=== PATIENT | female | born 1945 | race Caucasian/White ===

== ENCOUNTER 2016-10-21 21:56 | Emergency (ER) | payer BC ==
--- NOTE | ~2016-10-21 | ER ---
PATIENT'S NAME: [facility] AGE: 70 Y [address] ROOM: [place] [address] LOCATION: [facility] ADMIT DATE: 10/21/2016 ER/Outpatient Report DISCHARGE DATE: 10/22/2016 FAMILY PHYSICIAN: Physician, Unknown ATTENDING PHYSICIAN: Rahul York Time of Arrival: 2156 hours. Time of Evaluation: 2215 hours. CHIEF COMPLAINT: This is a 70-year-old female with multiple medical problems. She is in with complaint of an episode of chest pain. HISTORY OF PRESENT ILLNESS: She reports that she developed fairly abrupt onset of chest pain, sweating, and shortness of breath. The pain radiated to her upper back that lasted approximately 5 minutes and resolved. She has been pain free since then. PAST MEDICAL HISTORY: Significant for seizures, she has a history of ovarian cancer, bilateral knee replacement. CURRENT MEDICATIONS: Please see list. REVIEW OF SYSTEMS: Otherwise negative. SOCIAL HISTORY: She smokes four cigarettes a day. She drinks alcohol occasionally. She is . PHYSICAL EXAMINATION: GENERAL: Alert, cooperative female, in no acute distress. VITAL SIGNS: Stable. SKIN: Warm and dry. Color is pale. She is asymptomatic at the time of my evaluation. HEAD EARS, EYES, NOSE, AND THROAT: Normal. NECK: Supple. HEART AND LUNGS: She had rhonchi audible bilaterally. ABDOMEN: Soft and nontender. EXTREMITIES: Normal. NEUROLOGIC: Normal. She remained pain-free in the emergency department. EKG was unremarkable. PATIENT'S NAME: [facility] AGE: 70 Y [address] ROOM: [place] [address] LOCATION: [facility] ADMIT DATE: 10/21/2016 ER/Outpatient Report DISCHARGE DATE: 10/22/2016 FAMILY PHYSICIAN: Physician, Unknown ATTENDING PHYSICIAN: Rahul York Comprehensive metabolic profile and cardiac enzymes were negative. D-dimer was normal. I initially planned on admitting the patient; however, after I discussed this with the patient, she states due to her metastatic disease, frequent hospital visits, and the fact that she has been asymptomatic since arrival, she requests to go home in spite of my recommendation and I can certainly understand that line of thinking. She was discharged. ASSESSMENT: Chest pain/resolved. PLAN: Follow up with her regular doctor. Return immediately for recurrent pain. MD ANDRY MARINO/modl /[id number] d: 10/22/16 1118 t: 11/19/16 0954, OUTPATIENT REPORT
[~2016-10-21 21:56] MED LIST: ALEVE220 M1 PO; ALLEGRA ALLERG180 MG PO; ALLEGRA180 MG PO; ASPIRIN325 MG PO; ATIVAN 0.5MG0.5 MG PO; COLACE100 MG PO; COQ-10100 MG PO; CRANBERRY CONC1 EACH PO; CRANBERRY200 MG PO; DECADRON4 MG PO; DULCOLAX10 MG R; EFFEXOR XR150 MG PO; FEOSOL325 MG PO; FISH OIL1000 MG PO; KEPPRA500 MG PO; LECITHIN400 MG PO; LEVOTHROID (SY50 MCG PO; MIRALAX17 GM PO; NIASPAN500 MG PO; NORCO 5-325 MG1 TAB PO; NUCYNTA50 MG PO; OCUVITE SOFTGE1 EACH PO; OSCAL + D500 MG PO; THERA-VITE W/ B1 TAB PO; TYLENOL325 MG PO; VITAMIN E400 UNI2 PO; ZINCATE (50 MG220 MG PO
[2016-10-21 22:39] LABS: BASOPHIL % 0.2 %; EOSINOPHIL % 0.2 %; HEMOGLOBIN 10.4 g/dL (10.0-15.0); IMMATURE GRANULOCYTE % 0.4 %; LYMPHOCYTE # 2.9 K/uL (0.8-4.0); LYMPHOCYTE % 35.5 %; MCH 30.5 pg (27.0-34.0); MCHC 32.5 gm/dL (32.0-36.5); MCV 93.8 fl (83.0-98.0); MONOCYTE # 0.2 K/uL (0.0-1.0); MPV 9.4 fl (9.4-12.4); NEUTROPHIL % 61.7 %; NRBC % 0 /100WBC (0-0.00); PLATELET COUNT 255 K/uL (150-450); RBC 3.41 M/uL (3.50-5.50); RDW-CV 19.1 % (11.9-14.6); WBC 8.1 K/uL (4.0-11.0)
[2016-10-21 22:55] LABS: PROTIME 10.5 SECONDS (9.6-11.1); PTT 22 SECONDS (25-32)
[2016-10-21 22:58] LABS: ALBUMIN 3.4 gm/dL (3.5-5.0); ALK PHOS 57 IU/L (33-138); ALT 20 IU/L (12-78); ANION GAP 16.8 (10.0-19.0); AST 15 IU/L (10-40); BLOOD UREA NITROGEN 17 mg/dL (6-24); CALCIUM 8.6 mg/dL (8.5-10.5); CHLORIDE 101 mMol/L (96-110); CO2 24 mMol/L (22-32); CPK 41 IU/L (21-215); CREATININE 0.7 mg/dL (0.5-1.1); ESTIMATED GFR (MDRD EQUATION) > 60; POTASSIUM 3.8 mMol/L (3.7-5.1); SODIUM 138 mMol/L (135-145); TOTAL BILIRUBIN 0.3 mg/dL (0.0-1.5); TOTAL PROTEIN 6.6 g/dL (6.0-8.4)
== END 2016-10-22 00:12 | disposition disaster alternative care site (69) ==
LOC: GMED 21:56
PROVIDERS: Emergency Medicine
DX: R07.9 Chest pain, unspecified (principal); F17.210 Nicotine dependence, cigarettes, uncomplicated

== ENCOUNTER → 2016-10-25 | Outpatient (CLI) | payer BC, MEDICARE ==
[~2016-10-25] MED LIST changes: +CATALYN; +CATALYN PO; +EFFEXOR XR75 MG PO; +TYLENOL ARTHRI650 MG PO; +XARELTO20 MG PO
[2016-10-25 11:04] LABS: CREATININE 0.5 mg/dL (0.5-1.1); ESTIMATED GFR (MDRD EQUATION) > 60
== END | disposition disaster alternative care site (69) ==
LOC: GRAD 10:00
PROVIDERS: Neurological Surgery
DX: Z08 Encounter for follow-up examination after completed treatment for malignant neoplasm (principal); Z85.89 Personal history of malignant neoplasm of other organs and systems; Z98.890 Other specified postprocedural states; J98.4 Other disorders of lung
CPT/HCPCS: A9577

== ENCOUNTER → 2016-11-08 | Outpatient (CLI) | payer BC, MEDICARE | END | disposition disaster alternative care site (69) | LOC: GRAD 08:00 | DX: C56.9 Malignant neoplasm of unspecified ovary (principal); C79.31 Secondary malignant neoplasm of brain ==

== ENCOUNTER 2016-12-06 18:57 | Inpatient (IN) | payer BC, MEDICARE ==
[~2016-12-06] VITALS: Ht 167.6 cm; Wt 88.0 kg
--- NOTE | ~2016-12-06 | CON ---
PATIENT'S NAME: SANDRINE CASAS [facility] AGE: 71 Y [address] ROOM: [id number] [place], [place] [address] LOCATION: [facility] ADMIT DATE: 12/06/2016 Consultation DISCHARGE DATE: FAMILY PHYSICIAN: Ady Lara MD ATTENDING PHYSICIAN: Ady Lara REFERRING PHYSICIAN: MD Aleksey MELENDEZ has requested that I provide an inpatient consultation on this 71-year-old female, who presents to the [facility] Emergency Room with a chief complaint of left hip pain. Her past orthopedic history is significant for having undergone bilateral total knee replacements and bilateral total hip replacements with me. She states that her left hip has been pain-free until she fell on Saturday and landed on her left side. She has chronic weakness in her left leg stemming from brain cancer. I have not seen her subsequent to treatment for her brain cancer and the associated development of left-sided weakness. She localizes her pain to her left sacroiliac region and left greater trochanter. The patient is being admitted to Dr. Pleitez's service, but Dr. Pleitez and Aleksey Cook (who evaluated the patient upon her arrival in the emergency room) have requested my input due to my past involvement with treating her hip and knee arthritis. Active medical problems and present medications are as specified on her chart. Her , Matthew,is not presently at her bedside. PHYSICAL EXAMINATION: The patient is alert and oriented. There is no pain or crepitation with passive range of motion of the left hip. There is tenderness at the left hip greater trochanter, but there is no swelling or ecchymosis at the left greater trochanter. There are well-healed longitudinal midline scars at both knees. There is an associated L-shaped scar over the lateral plateau of the left knee. There are well-healed posterolateral scars at both hips. There was increased tone at the left hand. The left lower extremity is flaccid. RADIOGRAPHS: AP pelvis as well as AP and lateral radiographs of the left hip, femur, and left knee demonstrate well-fixed, well-aligned bilateral total hip replacements and left total knee replacement. Radiographs of the right knee are pending (the patient reports low-grade right knee pain subsequent to the fall on Saturday). Her hip replacements and left knee replacements are well fixed and well aligned. There are no radiolucencies. There is no periprosthetic fracture. There is no significant polyethylene wear or osteolysis. IMPRESSION: PATIENT'S NAME: SANDRINE CASAS [facility] AGE: 71 Y [address] ROOM: [address] [address] LOCATION: [facility] ADMIT DATE: 12/06/2016 Consultation DISCHARGE DATE: FAMILY PHYSICIAN: Ady Lara MD ATTENDING PHYSICIAN: Ady Lara Contusion, left hip. Well-fixed, well-aligned left total knee replacement. Well-fixed, well-aligned bilateral total hip replacements. No evident periprosthetic fracture. Left norberto-paresis associated with brain cancer and treatment thereof. Incomplete database (radiographs of the right knee pending). RECOMMENDATIONS: I reassured the patient that there was no evidence of a periprosthetic fracture. She should be permitted to bear weight (but not through pain). I will follow her along while she is in the hospital and subsequently as an outpatient. I have reassured her that no surgery is presently indicated on her left lower extremity. MD ANTHONY MELENDEZ/chavo /[id number] CC: Aleksey Cook PA-C d: 12/07/16 0132 t: 12/07/16 1748, CONSULTATION REPORT
--- NOTE | ~2016-12-06 | ER ---
PATIENT'S NAME: SANDRINE CASAS [facility] AGE: 71 Y [address] ROOM: [address] [place], [place] [address] LOCATION: [facility] ADMIT DATE: 12/06/2016 ER/Outpatient Report DISCHARGE DATE: FAMILY PHYSICIAN: Ady Lara MD ATTENDING PHYSICIAN: Ady Lara Time of Patient's Arrival: 1857 hours. Time of Patient's Evaluation: 1905 hours. CHIEF COMPLAINT: Ground level fall. HISTORY OF PRESENT ILLNESS: This is a 71-year-old female who presents to the ER via [place] [facility]. The patient and patient's state she suffered a ground level fall on Saturday. She states that she was transferring from her recliner to her wheelchair by herself, she ended up falling and she struck the back of her head on the coffee table and she lost consciousness for a brief second. states that she came right too, she was talking fine, had noted dizziness. He and his neighbor were able to get her up and put her in her wheelchair. The patient states that she did have landed on her left side. She states since the fall she does have a progressive increased pain in her left hip, a little bit into her lower back, but her pain radiates all the way down her left leg and she has a little bit of pain in her right knee as well. She states that she did do PT and OT in [place] today and she was a heavy 2 assist at that time. states that he was not able to help her this evening due to her pain and that is why they brought her in this evening. The patient denies any neck pain. She states that she does have some residual left-sided weakness from having her brain tumor removed in April of last year. She has had no other recent illness. No chest pain. No shortness of breath. ALLERGIES: PLEASE SEE MEDICATION LIST IN NURSE'S NOTES. MEDICATIONS: Please see medication list in nurse's notes. 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 SOCIAL HISTORY: She denies smoking, drug, or alcohol use. PATIENT'S NAME: SANDRINE CASAS [facility] AGE: 71 Y [address] ROOM: [address] [address] LOCATION: [facility] ADMIT DATE: 12/06/2016 ER/Outpatient Report DISCHARGE DATE: FAMILY PHYSICIAN: Ady Lara MD ATTENDING PHYSICIAN: Ady Lara REVIEW OF SYSTEMS: A 10-point review of systems was completed and was negative with the exception of those discussed in the HPI. PHYSICAL EXAMINATION: VITAL SIGNS: Height 5 feet 6 inches stated, weight 89 kg taken, blood pressure is 171/83, pulse 113, respirations 18, temperature 98 degrees tympanically, and saturations 98% on room air. [place] Coma Score is 15. GENERAL: Alert, calm female, in no obvious distress if she does not move. HEENT: Head: Normocephalic. She does display moist mucous membranes. Eyes: Pupils are equal and reactive to light. NECK: Supple. No lymphadenopathy. LUNGS: Clear to auscultation bilaterally. HEART: Slightly tachycardic. Normal rhythm. ABDOMEN: Soft, it is nontender. She has good bowel sounds throughout. No masses were palpated. MUSCULOSKELETAL: She does have left-sided weakness in upper and lower extremities. She has good sensation bilaterally to her lower extremities. She does have tenderness with palpation over her pelvis and left hip. She also has tenderness all the way down her left lower extremity to her knee and some mild right knee pain with palpation as well. I did not appreciate any open cuts or wounds. Her scalp has no erythema, no hematoma to it. She does have a healed scar to the right side of her scalp. NEURO: Cranial nerves 2 through 12 grossly intact. Gait was not observed. LABORATORY DATA: CBC: White count is 10.2, hemoglobin is 10.4, and platelets 317. Chemistry was unremarkable. X-rays of the pelvis and left hip were done and no obvious fracture was seen. X-ray of the left knee shows no obvious fracture. X-ray of the right knee shows no obvious fracture. We did do a CT to scan of her pelvis, which was reported as no fracture by Dr. Mitchell. IMPRESSION: 1. Left hip, left lower extremity, and right knee pain from ground level fall. 2. History of ovarian cancer. 3. Left-sided residual weakness from brain tumor removal. ASSESSMENT AND PLAN: The patient's port was accessed here in the emergency room. The patient states that she did not want any pain medication as long as we did not move her round. The patient's primary care physician is Dr. Lara, therefore I PATIENT'S NAME: SANDRINE CASAS [facility] AGE: 71 Y [address] ROOM: [place] [address] LOCATION: [facility] ADMIT DATE: 12/06/2016 ER/Outpatient Report DISCHARGE DATE: FAMILY PHYSICIAN: Ady Lara MD ATTENDING PHYSICIAN: Ady Lara called Dr. Pleitez, and he will be admitting the patient. I also notified Dr. Stearns of the patient, he also evaluated here in the emergency room as well. We will be turning the patient's care over to [facility] and Dr. Stearns at this time. The patient understands and agrees with care. LALA MENDEZ PA-C FOR MD KERI ONTIVEROS/chavo /[id number] d: 12/07/16132 t: 12/13/16 1819, OUTPATIENT REPORT
--- NOTE | ~2016-12-06 | DS ---
PATIENT'S NAME: SANDRINE CASAS [facility] AGE: 71 Y [address] ROOM: [place] [address] LOCATION: [facility] ADMIT DATE: 12/06/2016 Discharge Summary DISCHARGE DATE: 12/11/2016 FAMILY PHYSICIAN: Ady Lara MD ATTENDING PHYSICIAN: Ady Lara FINAL DIAGNOSES: 1. Left hip contusion. 2. History of metastatic ovarian cancer. 3. History of deep vein thrombosis. 4. History of seizure. PRINCIPAL PROCEDURES: None. DESCRIPTION: This 71-year-old female was admitted following a fall at home. She continuous with severe left hip pain following that fall. She is not going to be cared for at home. She had negative x-rays and CT scans in the ER, but was not able to be handled at home, so she was admitted for further definitive care. Please see dictated H and P for full details. HOSPITAL COURSE: The patient was initially admitted. She was continued on her home medications and had Dr. Stearns see her. He did not feel like there was anything from a fracture standpoint going on. She just continued to not do well from a standpoint of improving with the pain and it was felt like we needed to have further PT and OT, so we did consult Dr. Washburn who subsequently accepted transfer of this patient. The patient will be transferred to inpatient rehab. MEDICATIONS: Include: 1. Decadron 2 mg twice daily. 2. Colace 100 mg b.i.d. 3. Keppra 500 mg b.i.d. 4. Levothyroxine 50 mcg daily. 5. Fexofenadine 180 mg daily. 6. MiraLAX 17 g daily. 7. Xarelto 20 mg daily. 8. Effexor XR 225 mg total daily. PLAN: She will call or return if she has any further problems or concerns. She voiced understanding of that plan. ADY LARA MD PATIENT'S NAME: SANDRINE CASAS [facility] AGE: 71 Y [address] ROOM: [place] [address] LOCATION: [facility] ADMIT DATE: 12/06/2016 Discharge Summary DISCHARGE DATE: 12/11/2016 FAMILY PHYSICIAN: Ady Lara MD ATTENDING PHYSICIAN: Ady Lara/modl /[id number] d: 12/28/16 0203 t: 12/28/16 0710, DISCHARGE SUMMARY
--- NOTE | ~2016-12-06 | HP ---
PATIENT'S NAME: SANDRINE CASAS [facility] AGE: 71 Y [address] ROOM: [address] [place], [place] [address] LOCATION: [facility] ADMIT DATE: 12/06/2016 History & Physical DISCHARGE DATE: FAMILY PHYSICIAN: Ady Lara MD ATTENDING PHYSICIAN: John Pleitez DATE OF SERVICE: ADMIT OBSERVATION NOTE CHIEF COMPLAINT: Severe left hip, bilateral lower leg and knee pain. She has a history of a ground level fall on 12/04/2016. HISTORY OF PRESENT ILLNESS: The patient is a 71-year-old female with known history of metastatic ovarian cancer, who was initially diagnosed when she presented with seizures on 04/30/2016 and was found to have a right frontal brain mass. It was resected by Dr. Moore and was found to be adenocarcinoma, thought to be metastatic. Further evaluation showed a right pelvic mass. She had a hysterectomy, so Dr. Zimmerman was consulted and was presumed to be a right ovarian mass. She subsequently underwent an exploratory laparotomy on 06/25/2016 with bilateral salpingo-oophorectomy for pelvic tumor debulking. She also had an omental biopsy. 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 Good news is her CA-125 has been coming down. On 08/16/2016, it was 19.6; on 09/27/2016, it was down to 10.2. She did have a left lower extremity DVT on 08/06/2016. She is on Xarelto for that. The patient reports that she was doing a transfer on Saturday12/04/2016 when she had a ground level fall. She has had increasing pain in her buttocks and legs. She is now to the point where she can not be taken care of at home. She was in physical therapy today. She unfortunately did not stop and see Dr. Lara anywhere along the way. She presented to the emergency room. She had x-rays done of her hips, knees, legs, pelvis along with a CT of her pelvis, all of which is negative for fracture. She is adamant that there is no way she could go home and take care of herself. MEDICAL ALLERGIES: Codeine, honey bees, meperidine oral tablets, and shellfish. CURRENT MEDICATIONS: 1. Linsey 180 mg daily. 2. Ativan 0.5 mg tablet every 4 hours p.r.n. 3. Bisac-Evac 10 mg suppository rectally once daily as needed. 4. Dexamethasone 4 mg half a tablet oral route 2 times daily. 5. EpiPen. PATIENT'S NAME: SANDRINE CASAS [facility] AGE: 71 Y [address] ROOM: [place] [address] LOCATION: [facility] ADMIT DATE: 12/06/2016 History & Physical DISCHARGE DATE: FAMILY PHYSICIAN: Ady Lara MD ATTENDING PHYSICIAN: John Pleitez 6. Fish oil concentrate. 7. She has a left AFO. 8. She is on Keppra 500 mg 1 twice daily. 9. Multivitamin daily. 10. Niacin 500 mg 1 capsule daily. 11. Nucynta, she had tablet of 50 mg every 6 hours. I do think that this is though. 12. She is on Synthroid 50 mcg daily. 13. Venlafaxine, she is on 150 and a 75 mg tablet for a total of 225 mg daily. Those are actually capsules. 14. She is also on Xarelto 20 mg daily. 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 She also has a history of seizure disorder secondary to the metastatic brain lesion, which was resected, and she has had problems with tolerance to statins. SURGICAL HISTORY: Includes an appendectomy in 1971, arthroscopic left knee surgery, one in 1989, one in 1994, and one in 1995. She had a biopsy of the right breast in 2004. She has had cataract surgery bilaterally in 03/2014. She had a cholecystectomy in 1975. She had a right frontal craniotomy for resection of brain tumor on 05/02/[address] Moore. She had a previous D and C in 1974. She had a right hip replacement in 06/2013. She had a hysterectomy for heavy bleeding back in 1975. She has had a history of a knee surgery, left knee revision in 2004. On 05/13/2016, she had stereotactic radio surgery of the right frontal lobe cavity. She had right lower leg DVT in 1973 and left lower leg DVT in 2004. She had a port placement on 07/26/2016. On 06/25/2016, she had exploratory laparotomy with bilateral salpingo-oophorectomy with pelvic debulking and omental biopsy by Dr. Tomasz Richmond. She had left total hip arthroplasty in 2004. She had a left total knee arthroplasty in 1997 and a right total knee arthroplasty in 2010. She had tubal ligation in 1971. She had a history of right lower extremity varicose vein surgery with a ligation and stripping in 1974. SOCIAL HISTORY: She does have alcohol on occasional basis, occasional caffeine. Denies illicit drug use. She is and retired, and she is an every day smoker. FAMILY HISTORY: PATIENT'S NAME: SANDRINE CASAS [facility] AGE: 71 Y [address] ROOM: [place] [address] LOCATION: [facility] ADMIT DATE: 12/06/2016 History & Physical DISCHARGE DATE: FAMILY PHYSICIAN: Ady Lara MD ATTENDING PHYSICIAN: John Pleitez Family history is remarkable for cancer in her mom, coronary artery disease in dad, heart disease in mom, and hyperlipidemia in her mother and sister. IMMUNIZATIONS: She had her influenza on 06/22/2016, pneumococcal on 06/22/2016. She had a Tdap on 11/30/2015. REVIEW OF SYSTEMS: HEENT: Negative. LUNGS: Denies shortness of breath. CHEST: No pains, pressure, or tightness. GI: Negative. : Negative. MUSCULOSKELETAL: Just the left hip and bilateral leg pain and knee pain. PHYSICAL EXAMINATION: GENERAL: An alert female, who is resting comfortably in bed. She does not appear to be in acute distress. GENERAL: Height is 5 feet 6 inches, weight 89 kg, blood pressure 171/83, pulse is 113, respiratory rate 18, temp 98.0, saturations 98%. HEENT: Her head is normocephalic, atraumatic. She has signs of her previous craniotomy. Her ears, eyes, nose, and throat are otherwise clear. NECK: Supple. No adenopathy. LUNGS: Clear. HEART: Regular rate and rhythm. ABDOMEN: Benign. EXTREMITIES: She has a fair amount of bruising on her upper extremities. She is on Xarelto as mentioned. Interesting thing is on her lower extremity, she has no bruises, contusions, hematomas that I can find. She also has no pain with movement of her left hip, right hip, left and right knees. Her legs have full range of motion. She has no significant edema. As I mentioned, no indurated, swollen areas from the fall. LABORATORY AND DIAGNOSTIC DATA: The patient had x-rays done. She had a CT of her head without contrast, which showed no acute process. She had a left knee three views, CT scan of her pelvis along with left hip done, and all these were negative for any signs of fractures. There were no signs of any new other metastatic lesions. Her white count is 10.2, hemoglobin 10.4, hematocrit 32.3, platelet count 317. Her differential shows 53.7% neutrophils, 37.1% lymphocytes. Her PTT is 26, pro-time 9.9, INR of 0.94. She had a chemistry panel, which showed a glucose of 90, BUN 16, creatinine 0.5, sodium 139, potassium 3.7, chloride 105, CO2 of 24, corrected calcium 8.9, total protein 6.8, albumin 3.4, AST 20, ALT 23, and EGFR is greater than 60. PATIENT'S NAME: SANDRINE CASAS [facility] AGE: 71 Y [address] ROOM: [place] [address] LOCATION: [facility] ADMIT DATE: 12/06/2016 History & Physical DISCHARGE DATE: FAMILY PHYSICIAN: Ady Lara MD ATTENDING PHYSICIAN: John Pleitez ASSESSMENT: 1. Bilateral lower extremity pain, worse in the left hip and also complains of bilateral knee pain, but there are no signs of trauma that I can see. X-rays are negative. 2. 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 These are all status post resection. 3. On paclitaxel 175 mg/m2 IV per Oncology. 4. History of left lower extremity deep venous thrombosis, diagnosed 08/06/2016, for which she is on Xarelto. 5. History of depression. 6. History of tobacco dependence. 7. Hyperlipidemia. 8. Hypothyroidism. 9. Osteoarthritis. 10. History of seizure disorder secondary to her metastatic ovarian cancer. 11. History of statin intolerance. PLAN: We will admit the patient to observation. We will have Dr. Stearns, her orthopedist, see her tomorrow to have further evaluate things. We will keep her comfortable in the mean time, and Dr. Lara, her regular doctor, will take over in the morning. MD SHAUNA THRASHER/chavo /[id number] D: [id number] T: [id number] HISTORY & PHYSICAL
--- NOTE | ~2016-12-06 | CON ---
PATIENT'S NAME: SANDRINE CASAS [facility] AGE: 71 Y [address] ROOM: [place] [address] LOCATION: [facility] ADMIT DATE: 12/06/2016 Consultation DISCHARGE DATE: FAMILY PHYSICIAN: Ady Lara MD ATTENDING PHYSICIAN: Ady Lara REFERRING PHYSICIAN: ILIR REID MD Consult for Dr. Lara. This 71-year-old lady who is well known to me, has been on rehab unit for a while, she is referred for rehab/GIRP unit admission, was admitted on 12/06/2016 with sudden onset of severe pain after she fell accidentally to the floor, landing on the left hip and it has been seen by the ortho part which has ruled out the possibility of fracture so far. So far, she is still in pain and is unable to ambulate. She has extensive past history of ovarian cancer initially diagnosed, presenting as seizure disorder with metastasis to the brain on 04/30, right frontal brain mass with resection and showed adenocarcinoma, right pelvic mass later on was evaluated at the right ovary and she underwent exploratory laparotomy on 06/25/2016, and debulking with some in oophorectomy. She is markedly weak on the left side, left upper extremity more involved than the left lower extremity. She is at the present time being markedly much in pain if she stands. Her CA-125 has been going down. She is on Xarelto and did have a DVT in bilateral lower extremities on 07/17/2016. At the present time, she is unable to stand and if stands with maximal assistance of two, cannot make, but one step and she could not go further. ALLERGIES: SHE IS ALLERGIC TO CODEINE, MEPERIDINE, AND HONEY BEE. ALERT AND ORIENTED, STILL MARKEDLY WEAK ON THE LEFT SIDE AND IS HOWEVER ABLE TO COMPREHEND AND EXPRESS WITHOUT DIFFICULTY. VITALS ARE STABLE. MEDICATION: She is on the following medications. 1. Claritin. 2. MiraLAX. 3. Decadron. 4. Colace. PATIENT'S NAME: SANDRINE CASAS [facility] AGE: 71 Y [address] ROOM: [place] [address] LOCATION: [facility] ADMIT DATE: 12/06/2016 Consultation DISCHARGE DATE: FAMILY PHYSICIAN: Ady Lara MD ATTENDING PHYSICIAN: Ady Lara 5. Tylenol. 6. Effexor XR. 7. Multivitamin. 8. NaCl 0.9%. 9. Naproxen. 10. Dulcolax suppository. 11. Xarelto. 12. Levothyroxine. 13. Nucynta. 14. Keppra. Now, she is with a Prado catheter also. I would suggest that she be admitted for intensive rehabilitation for about 10- 14 days aiming to discharge on modified independence and meanwhile we can control her pain to a better extent. All the above was explained to her. She verbalized understanding and agreement. Thank you for this referral. MD FREDO MARES/modl /[id number] d: 12/09/16 1601 t: 12/10/16 0747, CONSULTATION REPORT
[~2016-12-06 18:57] MED LIST changes: -CATALYN; -CATALYN PO; -EFFEXOR XR75 MG PO; -TYLENOL ARTHRI650 MG PO; -XARELTO20 MG PO
[2016-12-06 21:05] LABS: BASOPHIL # 0.1 K/uL (0.0-0.2); BASOPHIL % 0.6 %; EOSINOPHIL # 0.1 K/uL (0.0-0.5); EOSINOPHIL % 0.6 %; HEMATOCRIT 32.3 % (33.0-46.0); HEMOGLOBIN 10.4 g/dL (10.0-15.0); IMMATURE GRANULOCYTE # 0.2 K/uL (0.0-0.3); IMMATURE GRANULOCYTE % 2.1 %; LYMPHOCYTE # 3.8 K/uL (0.8-4.0); LYMPHOCYTE % 37.1 %; MCH 32.6 pg (27.0-34.0); MCHC 32.2 gm/dL (32.0-36.5); MONOCYTE # 0.6 K/uL (0.0-1.0); MONOCYTE % 5.9 %; NEUTROPHIL # (ANC) 5.5 K/uL (1.8-7.8); NEUTROPHIL % 53.7 %; NRBC % 0 /100WBC (0-0.00); RBC 3.19 M/uL (3.50-5.50); RDW-CV 17.6 % (11.9-14.6); WBC 10.2 K/uL (4.0-11.0)
[2016-12-06 21:07] LABS: MCV 101.3 fl (83.0-98.0); PLATELET COUNT 317 K/uL (150-450)
[2016-12-06 21:13] LABS: INR - (THERAPEUTIC) 0.94 (0.92-1.07); PROTIME 9.9 SECONDS (9.8-11.4); PTT 26 SECONDS (25-32)
[2016-12-06 21:24] LABS: ALBUMIN 3.4 gm/dL (3.5-5.0); ALK PHOS 69 IU/L (33-138); ALT 23 IU/L (12-78); ANION GAP 13.7 (10.0-19.0); AST 20 IU/L (10-40); BLOOD UREA NITROGEN 16 mg/dL (6-24); CALCIUM 8.9 mg/dL (8.5-10.5); CHLORIDE 105 mMol/L (96-110); CO2 24 mMol/L (22-32); CREATININE 0.5 mg/dL (0.5-1.1); ESTIMATED GFR (MDRD EQUATION) > 60; POTASSIUM 3.7 mMol/L (3.7-5.1); SODIUM 139 mMol/L (135-145); TOTAL BILIRUBIN 0.3 mg/dL (0.0-1.5); TOTAL PROTEIN 6.8 g/dL (6.0-8.4)
[2016-12-06] MEDS ORDERED: XARELTO20 MG PO (23:49)
[2016-12-06] MEDS ORDERED: EFFEXOR XR150 MG PO (23:51)
[2016-12-06] MEDS ORDERED: CATALYN (23:52)
[2016-12-06] MEDS ORDERED: CATALYN PO (23:54)
[2016-12-06] MEDS ORDERED: MIRALAX17 GM PO (23:56)
[2016-12-06] MEDS ORDERED: TYLENOL ARTHRI650 MG PO (23:58)
--- NOTE | 2016-12-07 02:06 | NUR ---
Patient arrived on floor at around 2229, patient had fallen at home on saturday and now cannot bear weight with her left leg, she does have left sided weakness from a brain tumor removal, needs assistance with all transfer does not ambulate, only has pain when she attempts to bear weight on that leg, was taking care of her at home
--- NOTE | 2016-12-07 04:26 | NUR ---
Patient has rested well tonight, used bedpan to void, unable to ambulate due to left sided weakness will need two assist for transfers or lift, pulses are thready in bilateral feet, no pain as long as patient does not attempt to put weight on the lower left extremitie, very pleasant and cooperative, was taking care of patient at home.
[2016-12-07] MEDS ORDERED: EFFEXOR XR75 MG PO (07:30)
--- NOTE | 2016-12-07 13:34 | NUR ---
Met with patient and spouse this morning. Introduced myself and explained my role with the CM department. Spouse has been patient's primary caregiver the past 6+months. They both state they have all the necessary assistive devices at home (wheelchair, walker, shower chair, toilet riser, etc.). They had [facility] in the past and they would like to have a referral to home health again. They really liked [facility] and would like to go with them again. I left a Face to Face on the chart for physician to complete if he is in agreement with home health. I contacted Katy at [facility] and faxed the referral to her [phone], based on what information I have on the patient at this time. Note left on patient's chart for the physician informing him that patient would like home health care. Will continue to follow.
--- NOTE | 2016-12-07 16:47 | NUR ---
Significant event: Up to commode and to chair with two, maximum assist. Able to stand on right leg and move it, has difficulty with left leg. Pivot transfer. Voiding very small amounts of foul smelling urine. Encouraged fluids, Vomited this am bile, had zofran and she reported it helped. at bedside most of day. reports up until 3 days ago she was able to amulate at home with his help and has not been able to since she fell at home and he would just pivot transfer.
[2016-12-08 02:05] LABS: BILIRUBIN URINE NEGATIVE (NEGATIVE); BLOOD URINE NEGATIVE /UL (NEGATIVE); GLUCOSE URINE NEGATIVE (NEGATIVE); KETONE URINE NEGATIVE (NEGATIVE); LEUKOCYTES URINE NEGATIVE /UL (NEGATIVE); NITRITE URINE NEGATIVE (NEGATIVE); PROTEIN URINE NEGATIVE (NEGATIVE); UROBILINOGEN URINE NORMAL (NORMAL)
[2016-12-08 02:07] LABS: COLOR URINE YELLOW (YELLOW); TURBIDITY URINE CLEAR (CLEAR)
--- NOTE | 2016-12-08 03:30 | NUR ---
Significant Event: PATIENT IS ALERT AND ORIENTATED X4. TRANSFERS WITH A TWO PERSON HEAVY ASSIST TO BEDSIDE COMMODE. HAS DIFFUCULTY STANDING ON LEFT LEG. NO FRACTURES FOUND ON XRAYS MAY BEAR WT TOLERATED BILATERALLY. STRAIGHT CATH UA COLLECTED AND SET TO LAB. NO COMPLAINTS OF PAIN OR DISCOMFORT. NO NAUSEA/VOMITING. VS WNL. PATIENT IS A RETIRED NURSE. PLEASANT AND COORPERATIVE WITH CARES. Follow up: CONTINUE ENCOURAGE FLUIDS AND AMBULATION
--- NOTE | 2016-12-08 19:16 | NUR ---
Significant Event: Follow up: Patient remains resting in bed today, turned and repositioned by staff. Had urinary retention today, straight cath for 1100ml, may insert walter tonight if patient retains again. Eats and drinks well. left side weakness. alert oriented.
--- NOTE | 2016-12-09 01:58 | NUR ---
Significant Event: Patient pleasant and cooperative with cares. Prado placed per doctor order for inability to void. Over 500 out after placement. Port to left chest with good blood return. Left side flaccid from brain tumor. Boot to left lower leg. Follow up: Continue to monitor.
[2016-12-09 06:37] LABS: BASOPHIL % 0.1 %; EOSINOPHIL % 0.1 %; HEMATOCRIT 28.9 % (33.0-46.0); HEMOGLOBIN 9.5 g/dL (10.0-15.0); IMMATURE GRANULOCYTE # 0.1 K/uL (0.0-0.3); IMMATURE GRANULOCYTE % 1.6 %; LYMPHOCYTE # 1.8 K/uL (0.8-4.0); LYMPHOCYTE % 23.7 %; MCH 32.9 pg (27.0-34.0); MCHC 32.9 gm/dL (32.0-36.5); MONOCYTE # 0.4 K/uL (0.0-1.0); MONOCYTE % 5.8 %; MPV 8.9 fl (9.4-12.4); NEUTROPHIL # (ANC) 5.2 K/uL (1.8-7.8); NEUTROPHIL % 68.7 %; NRBC % 0 /100WBC (0-0.00); PLATELET COUNT 294 K/uL (150-450); RBC 2.89 M/uL (3.50-5.50); RDW-CV 16.9 % (11.9-14.6); WBC 7.5 K/uL (4.0-11.0)
--- NOTE | 2016-12-09 18:55 | NUR ---
Significant Event: Follow up: Patient stood at bedside and took a few steps this am with the assist of two therapy staff. Returns to bed and resting in bed all of the day, staff reposition patient. walter in place. no pain. eats and drinks well, pleasent and cooperative. no skin issues. left side weak.
--- NOTE | 2016-12-10 03:56 | NUR ---
Significant Event:Patient has walter cath to DD, unable to void here while in the hospital. Flaccid on left side due to brain tumor removal previously. Alert and orientated, pleasant and cooperative with cares. Nucynta 50 mg at 0156 for lower back pain, repositioned also. Port to left chest with good blood return, saline locked. Dr Lindquist consulted and looking at rehab for 10-14 days and possilbe home health after that. Follow up: Continue to monitor.
--- NOTE | 2016-12-10 13:02 | NUR ---
0730 Consult received stating patient is going to need SNF placement. Printed patient's information and faxed it to all 4 nursing homes in [place]. 0840 Reviewed patient's chart this morning. Dr. Serrano evaluated patient and he notes that she would be a good candidate for Inpatient Rehab. I placed a call to Shannon York with [facility] at 1050 and she is not in the office today, but said Liane Hollingsworth is following on [facility]. I placed a call to Liane at 1055 and left her a voicemail asking on bed availability and if they received word from Dr. Serrano on accepting patient. I also emailed Liane and Shannon at 1245 as I was still waiting to hear back from them on bed availability on [facility]. I spoke to patient, , and son at 1240 and patient states that she is under the impression she will be going to Inpatient Rehab per Dr. Serrano and Dr. Lara. Will wait to hear back from Liane or Shannon on this. I did contact all the nursing homes that I made referrals to and told them to disregard the referral at this time due to likely transfer to [facility] this week. Will continue to follow.
--- NOTE | 2016-12-10 16:31 | NUR ---
Phone call from Liane Hollingsworth on [facility] stating they are able to accept patient tomorrow if we can get the pre authorization done. I contacted Dr. Lara at 1632 and let him know that [facility] has a bed available for her. He states she is medically cleared to go to [facility] as soon as we have the pre-authorization. Will work on the preauthorization.
--- NOTE | 2016-12-10 17:18 | NUR ---
AAOx3. Cooperative with cares. Up w/2 assist, GB, and hemiwalker. Stand/steps/pivot from bed to chair and back; tolerated well. Tolerating regular diet well. VSS, afebrile, on RA. Denies N/V/D and pain. No PRN meds given. Prado draining cloudy yellow urine. No BM today. L) chest port w/GBR s/l'd.
--- NOTE | 2016-12-11 04:23 | NUR ---
Significant Event: Patient is alert and oriented x 3. Left upper and lower extremities are flaccid. Up with 2 assist, gaitbelt, and hemiwalker. Patient refuses to be repositioned at times. VSS on room air. Left foot drop boot intact. Wears brace on left arm during the day, removed at night. Prado intact, 1750 mls out this shift. Left chest port IV, good blood return, saline locked. Patient had minimal pain, refused need for pain medication. Patient is pleasant and cooperative with cares. Follow up:
--- NOTE | 2016-12-11 10:42 | NUR ---
0802 placed phone call to [facility] [place] to get preauthorization done so patient can transfer to [facility]. Was on the phone with BRENT [employer] blocks pulper with [facility] until 0855. She states she is having difficulty getting patient to meet criteria for inpatient rehab. She asked me to fax her clinical on patient at [phone] with case reference #[id number]. She will have her physician review the information and she will call me back with their decision on whether or not patient can go to [facility]. Clinical was faxed at [phone] from the CM department. As of 1045 I have not heard from Alissa.
--- NOTE | 2016-12-11 13:06 | NUR ---
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
--- NOTE | 2016-12-11 14:00 | NUR ---
DISMISSED PER W/C TO REHAB FLOOR IN HOSPITAL.TRANSTER PAPERS WERE SENT & VERBAL NURSE REPORT WAS ALSO GIVEN.
== END 2016-12-11 14:00 | DRG 605 ==
LOC: GACC 18:57 → GMSU 21:20
PROVIDERS: Family Medicine; Physician Assistant Medical; ADMIT Obstetrics & Gynecology Obstetrics
DX: S70.02XA Contusion of left hip, initial encounter (principal); C79.31 Secondary malignant neoplasm of brain; G81.94 Hemiplegia, unspecified affecting left nondominant side; S70.01XA Contusion of right hip, initial encounter; S80.02XA Contusion of left knee, initial encounter; S80.01XA Contusion of right knee, initial encounter; W18.30XA Fall on same level, unspecified, initial encounter; M19.90 Unspecified osteoarthritis, unspecified site; E03.9 Hypothyroidism, unspecified; E78.5 Hyperlipidemia, unspecified; F17.210 Nicotine dependence, cigarettes, uncomplicated; Z96.652 Presence of left artificial knee joint; Z96.643 Presence of artificial hip joint, bilateral; Z86.718 Personal history of other venous thrombosis and embolism; Z85.43 Personal history of malignant neoplasm of ovary
CPT/HCPCS: J2405

== ENCOUNTER 2016-12-11 14:15 | Inpatient (IN) | payer BC, MEDICARE ==
[~2016-12-11] VITALS: Ht 167.6 cm; Wt 87.7 kg
--- NOTE | ~2016-12-11 | CON ---
PATIENT'S NAME: BERENICE CASAS [facility] AGE: 71 Y [address] ROOM: [id number] [place], [place] [address] LOCATION: [facility] ADMIT DATE: 12/11/2016 Consultation DISCHARGE DATE: FAMILY PHYSICIAN: Ady Lara MD ATTENDING PHYSICIAN: Luke Catherine DATE OF CONSULTATION: 12/18/2016 REFERRING PHYSICIAN: ILIR REID MD Team members reporting include Dr. Angelo Keller, acting for Dr. Catherine this week; Shannon York, long term care social worker; Marina Walker, RN; Mara Dillon, PT; Eliana Mcknight, PT; Leonora Meyer, OT; Breonna Bowen, Speech Therapy; Lizbeth Orantes, therapeutic rec; and Sister Esperanza Swann, Pastoral Care. CURRENT STATUS: Berenice is a 71-year-old woman, admitted to our inpatient rehab unit on December 11, 2016, following a fall with left hip pain. The patient did not fracture this hip. She does have a history of ovarian cancer with metastases to the brain. The patient still has difficulty with moving her left arm from the previous excision of the brain tumor. The patient continues to have a Prado catheter after two failed trial attempts. She takes Tylenol and Nucynta for pain. She does have bruises on her arms. She has a bruise on her second toe and a scab on her right foot. The patient is on a regular diet. Prealbumin is 38. She is currently at low nutritional risk. The patient can transfer sit to supine at minimal assistance and supine to sit, minimal assistance with [id number] cuing; sit to stand and stand to sit, minimal assistance; bed to chair and chair to bed, contact guard assistance with encouragement and cues. Ambulation has not been tried yet. She can propel her wheelchair 50 feet on a levelled surface at standby assistance. She has met 2/5 short-term PT goals. The patient can dress her upper body at minimal assistance; lower body, dependent; grooming, standby; bathing, moderate assistance; toileting, dependent; and feeding, standby assistance. Goals have been set for contact guard assistance to modified independence, and she has met 1/4 short-term OT goals. The patient's comprehension, language, and expression are at mod I. Memory, minimal assistance. Problem solving, standby to mod I. Car transfers have not been done yet. The patient does have a deep face and has good yarsanism support. DISCHARGE PLAN: The patient is receiving 3 hours of PT, OT, and Speech; Saturday through Saturday. The patient has daily rehab, nursing, and physiatry involvement as well as therapeutic recreational services 4 days per week. The patient has shown functional improvement and is progressing. Please see her plan of care for specific goals. Plan is for the patient to [place] a [place] [facility] [place] as soon as placement can be arranged. The patient's did PATIENT'S NAME: BERENICE CASAS [facility] AGE: 71 Y [address] ROOM: [address] [address] LOCATION: [facility] ADMIT DATE: 12/11/2016 Consultation DISCHARGE DATE: FAMILY PHYSICIAN: Ady Lara MD ATTENDING PHYSICIAN: Luke Catherine voice that he is unable to take the patient home as the patient's care has gotten difficult for him. The patient is in agreement to going to a [place]. We will proceed with discharge to [place] [facility] [place]. SHANNON YORK FOR LUKE CATHERINE MD TD/modl /[id number] d: 12/24/161956 t: 12/31/16 1402, CONSULTATION REPORT
--- NOTE | ~2016-12-11 | DS ---
PATIENT'S NAME: SANDRINE CASAS [facility] AGE: 71 Y [address] ROOM: [address] [place], [place] [address] LOCATION: [facility] ADMIT DATE: 12/11/2016 Discharge Summary DISCHARGE DATE: FAMILY PHYSICIAN: Ady Lara MD ATTENDING PHYSICIAN: David Catherine This 71-year-old lady was admitted to Rehab Unit on 12/11/2016 and will be discharged on 12/25/2016 to go to [facility]. 1. She was admitted with unstable gait, dependent activities of daily self- care, and some difficulty with speech. 2. During her stay here, she has been doing well with speech and was discharged after having intensive speech therapy also. 3. She will be at the present time on PT and OT on a regular basis while at the [facility]. 4. She has still a seizure disorder and should be monitored. 5. She should not drive and/or operate any mechanical device until she is reevaluated. 6. She should avoid beverages. She is on the following medications: 1. Tylenol 1300 mg p.o. twice daily. Do not exceed acetaminophen 4 g q.24 h. 2. Decadron 2 mg p.o. b.i.d. 3. Colace 100 mg p.o. b.i.d. 4. Keppra 500 mg p.o. b.i.d. 5. Levothroid 50 mcg p.o. q.a.m. 6. Claritin 10 mg p.o. every night. 7. Theravite 1 tablet p.o. daily. 8. MiraLAX 17 g p.o. daily. 9. Xarelto 20 mg p.o. daily. 10. Effexor XR 150 mg p.o. daily. 11. Effexor XR 75 mg p.o. daily. 12. Dulcolax suppository 10 mg rectally p.r.n. 13. Ativan 0.5 mg q.4 h. as needed. 14. Zofran 4 mg sublingually q.4 h. as needed. 15. Nucynta 50 mg p.o. q.6 h. as needed p.r.n., 48 of them, renewal all her medication, renewal is through her family physician. She will follow with me in 4 weeks, follow up with Dr. Stearns who saw her on consult while here as he sees fit, follow up with Dr. Salgado as he sees fit, follow up with Dr. Lara, her family physician, as soon as possible, and again all her medication are going to be through her family physician's renewals and/or addition or taking orally any medication. She should avoid any alcoholic beverages. She will be at the present time in [place] and do her PT, OT there. PATIENT'S NAME: SANDRINE CASAS [facility] AGE: 71 Y [address] ROOM: [place] [address] LOCATION: [facility] ADMIT DATE: 12/11/2016 Discharge Summary DISCHARGE DATE: FAMILY PHYSICIAN: Ady Lara MD ATTENDING PHYSICIAN: David Catherine All the above was explained to her in detail. She verbalized understanding. FINAL IMPRESSION: 1. Marked weakness in bilateral lower extremities, unstable gait, dependent activities of daily self-care, improved, including pain in hips and knee, especially right knee. 2. 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 3. Status post metastatic lesion to the right frontal lobe of the brain, status post craniotomy and excision. 4. Seizure disorder, initial presentation, and is on seizure precautions. 5. Depression. 6. Hypothyroid. 7. Arthritis. 8. Tobacco use, per history. All the above was explained to her and her in detail, they verbalized understanding and agreement with plan of care. DAVID CATHERINE MD WMS/modl /[id number] d: 12/25/16 0410 t: 12/26/16 0810, DISCHARGE SUMMARY
--- NOTE | ~2016-12-11 | HP ---
PATIENT'S NAME: SANDRINE CASAS [facility] AGE: 71 Y [address] ROOM: [place] [address] LOCATION: [facility] ADMIT DATE: 12/11/2016 History & Physical DISCHARGE DATE: FAMILY PHYSICIAN: Ady Lara MD ATTENDING PHYSICIAN: Luke Washburn DATE OF SERVICE: HISTORY OF PRESENT ILLNESS: This 71-year-old lady is admitted for continuous medical treatment and intensive rehabilitation. Falling repeatedly with unstable gait. Dependent in activities of daily self- care. Mainly, the pain is in the pelvic area, especially on the left side. Can hardly stand without falling. She is, at the present time, admitted for intensive rehab and continuous medical treatment. She is alert and oriented. VITAL SIGNS: Blood pressure 107/62, temperature 97.8, pulse 88, and respiration rate 20. She is 5 feet 6 inches tall and weighs 88 kg. ALLERGIES: NO KNOWN DRUG ALLERGIES, EXCEPT THAT SHE IS ALLERGIC TO IODINE DYES. SHE IS ALSO ON SEIZURE DISORDER. ORIGINALLY, SHE PRESENTED WITH METASTASIS TO THE BRAIN WITH SEIZURE DISORDER. PAST MEDICAL HISTORY: Past history of significance as follows: 1. History of bilateral lower extremity pain, worse on the left side. Also, complains of bilateral knee pain with no signs of trauma, and x-rays were negative, and orthopedic surgeon did evaluate her on admission. 2. 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 There is also status post resection. Did present originally as seizure disorder. 3. History of left lower extremity deep venous thrombosis diagnosed on 08/06/2016, and she was on Xarelto. 4. History of depression. 5. Tobacco dependency. 6. Dyslipidemia. PATIENT'S NAME: SANDRINE CASAS [facility] AGE: 71 Y [address] ROOM: [place] [address] LOCATION: [facility] ADMIT DATE: 12/11/2016 History & Physical DISCHARGE DATE: FAMILY PHYSICIAN: Ady Lara MD ATTENDING PHYSICIAN: Luke Washburn 7. Hypothyroid. 8. Osteoarthritis. 9. History of statin intolerance also. 10. She also has history of bilateral total hip arthroplasty with osteoarthritis and osteoporosis. 11. Allergic rhinitis. 12. Depression. She is, at the present time, doing well. Able to follow instructions. Can comprehend, express without difficulty. Voice is clear. Neurologically, she is stable. MEDICATIONS: She is on the following medications: 1. Tylenol Arthritis 1300 mg twice daily. 2. Decadron 2 mg p.o. b.i.d. 3. Colace 100 mg twice daily p.o. 4. Keppra 500 mg p.o. twice daily. 5. Levothroid 50 mcg p.o. daily before breakfast. 6. Theravite one tablet p.o. daily. 7. MiraLAX 17 g p.o. daily as needed. 8. Xarelto 20 mg p.o. daily. 9. Effexor XR 150 mg p.o. daily. 10. Effexor XR 75 mg p.o. daily. 11. Dulcolax suppository 10 mg rectally p.r.n. 12. Ativan 0.5 mg p.o. q.4 hours as needed. 13. Zofran 4 mg p.o. daily as needed. 14. Nucynta 50 mg p.o. q.6 hours as needed. LABORATORY DATA: At the present time, her lab works were as follows: On 12/12, white BC 11.9, RBC 3.20, hemoglobin 10.6, hematocrit 32.3, and platelets 366. CMS: Sodium 138, potassium 4.2, chloride 105, CO2 of 25, BUN 13, creatinine 0.4, and glucose 98. UA negative for bacteria; however, she could not pass urine, and we put a catheter in her. Her scan at night showed more than 200 mL. Prealbumin is 38. ASSESSMENT AND PLAN: She can hardly stand without pain. She can do active assistive range of motion, bilateral lower extremities. Transfers with moderate assistance. PATIENT'S NAME: SANDRINE CASAS [facility] AGE: 71 Y [address] ROOM: [address] [place], [place] [address] LOCATION: [facility] ADMIT DATE: 12/11/2016 History & Physical DISCHARGE DATE: FAMILY PHYSICIAN: Ady Lara MD ATTENDING PHYSICIAN: Luke Washburn She has, so far, good bowel control. We will put on intensive PT and OT 3 hours per day, 15 hours per week, for the coming 2 weeks or so, aiming to discharge at modified independence. We will keep on Dr. Lara. Dr. Salgado, and orthopedic surgeon Dr. Stearns to follow as necessary. All the above was explained to her in detail. She verbalized understanding and agreement. MD FREDO MARES/chavo /[id number]: [id number] T: [id number] HISTORY & PHYSICAL
--- NOTE | ~2016-12-11 | CON ---
PATIENT'S NAME: SANDRINE CASAS [facility] AGE: 71 Y [address] ROOM: [id number] [place], [place] [address] LOCATION: [facility] ADMIT DATE: 12/11/2016 Consultation DISCHARGE DATE: FAMILY PHYSICIAN: Ady Lara MD ATTENDING PHYSICIAN: Luke Catherine DATE OF CONSULTATION: 12/11/2016 REFERRING PHYSICIAN: ILIR REID MD Team members reporting include Dr. Catherine; Shannon York, grease worker; Marina Walker RN; Mara Dillon, PT; Eliana Mcknight, PT; Leonora Meyer, OT; Breonna Bowen, Speech Therapy; Lizbeth Orantes, Therapeutic Rec; and Sister Esperanza Swann, Pastoral Care. CURRENT STATUS: Jabari Ng is a 71-year-old woman, admitted to our Inpatient Rehab Unit on December 11, 2016. The patient was admitted to the hospital following a fall with left hip pain. The patient did not break her hip. It was felt that she does have a hematoma on the left hip. The patient is having considerable weakness and debility following this fall. She does have a history of ovarian cancer with metastases to the brain. She has a history of bilateral lower extremity worse in the left hip, history of DVT in the left lower extremity, history of depression, tobacco dependence, hyperlipidemia, hypothyroidism, osteoarthritis, and history of seizure disorder following secondary to her metastatic ovarian cancer. The patient did have Prado catheter taken out at 12:45 p.m. on December 11, 2016. We will see how she tolerates. She does have some bruising on her skin. The patient occasionally complains of pain. PT and OT and Speech still have yet to evaluate the patient on this date, so does Therapeutic Rec. The patient has been very open to Pastoral Care. DISCHARGE PLAN: The patient is receiving three hours of PT, OT, and Speech Saturday through Saturday. The patient has daily rehab, Nursing, and Physiatry involvement, as well as Therapeutic Recreational Services 4 days per week. The patient has shown functional improvement and is progressing. Please see her plan of care for specific goals. Plan is for the patient to discharge in approximately 7 to 10 days. Plan initially is for patient to return to home with her in [place], [place] if possible. SHANNON YORK FOR LUKE CATHERINE MD TD/jayl PATIENT'S NAME: SANDRINE CASAS [facility] AGE: 71 Y [address] ROOM: [address] [address] LOCATION: [facility] ADMIT DATE: 12/11/2016 Consultation DISCHARGE DATE: FAMILY PHYSICIAN: Ady Lara MD ATTENDING PHYSICIAN: Luke Catherine /[id number] d: 12/24/162001 t: 12/31/16 1405, CONSULTATION REPORT
[~2016-12-11 14:15] MED LIST changes: +CATALYN; +CATALYN PO; +EFFEXOR XR75 MG PO; +TYLENOL ARTHRI650 MG PO; +XARELTO20 MG PO
--- NOTE | 2016-12-11 19:05 | NUR ---
Significant Event:PATIENT ADMITTED VIA WHEELCHAIR FROM [facility] FOR [facility] AFTER HAVING A FALL AT HOME. SHE FELL ON THE November AND WENT HOME BUT THEN DEVELOPED SEVERE PAIN AND RETURNED TO THE HOSPITAL. SHE REPORTS THAT HER PAIN IS GETTING BETTER AND TAKES NUCYNTA FOR PAIN. IS VERY SUPPORTIVE. SHE HAS A HISTORY OF METASTATIC CANCER WITH HAVING A TUMOR REMOVAL FROM THE RIGHT BRAIN LAST YEAR WHICH CAUSE PARALYSIS TO THE LEFT SIDE. SHE REPORTS THAT SHE IS ABLE TO VERY SLIGHTLY LIFT LEFT ARM BUT NOT NOTICABLE. SHE WEARS A SPLINT TO THE LEFT ARM AND A SLING TO THAT ARM WHEN SHE IS UP. SHE ALSO HAS A FOOT DROP BOOT FOR THE LEFT FOOT. SHE IS A 2 ASSIST TRANSFER WITH A [employer]ANDAN WALKER AT THIS TIME. SHE WAS NOT EVALUATED BY THERAPY TODAY DUE TO HER LATE ARRIVAL AT 1410. SHE DENIED PAIN INITIALLY BUT LATER AT SHIFT CHANGE SAID SHE WOULD NEED SOME PAIN MEDS SOON. SHE HAS A PORT IN HER LEFT CHEST THAT WAS ACCESSED ON THE November. NO OTHER COMPLAINTS AT THIS TIME. Follow up:
[2016-12-12 00:05] LABS: BILIRUBIN URINE NEGATIVE (NEGATIVE); BLOOD URINE NEGATIVE /UL (NEGATIVE); COLOR URINE YELLOW (YELLOW); GLUCOSE URINE NEGATIVE (NEGATIVE); KETONE URINE NEGATIVE (NEGATIVE); LEUKOCYTES URINE 25 /UL (NEGATIVE); NITRITE URINE NEGATIVE (NEGATIVE); PH URINE 6.5 (4.0-8.0); PROTEIN URINE NEGATIVE (NEGATIVE); TURBIDITY URINE 1+ (CLEAR); UROBILINOGEN URINE NORMAL (NORMAL)
[2016-12-12 00:14] LABS: AMORPHOUS URINE 1+ (NEGATIVE); BACTERIA URINE NEGATIVE (NEGATIVE); EPITHELIAL URINE 0-2 #/HPF (NEGATIVE); RBC URINE NEGATIVE #/HPF (NEGATIVE); WBC URINE 0-2 #/HPF (NEGATIVE)
--- NOTE | 2016-12-12 04:19 | NUR ---
Alert and oriented. Calls for assistance as needed. Pt was here on [facility] last Apr/May following craniotomy. Matthew very attentive and assists with pt cares. Fell to floor at home during transfer. c/o hip and low back pain. Nucynta given at 2019. Here for strengthening. Is to person pivot transfer. Reportedly is cancer free after tx for ovarian cancer and removal, but port remains in upper left chest for bld draws. Will have labs this am. Prado cath was pulled just prior to transfer to [facility] yest. Reinserted at 2245 last evening with 575 ml immediately returned.
[2016-12-12 05:22] LABS: ALK PHOS 75 IU/L (33-138); ALT 27 IU/L (12-78); ANION GAP 12.2 (10.0-19.0); AST 16 IU/L (10-40); BLOOD UREA NITROGEN 13 mg/dL (6-24); CALCIUM 8.9 mg/dL (8.5-10.5); CHLORIDE 105 mMol/L (96-110); CO2 25 mMol/L (22-32); CREATININE 0.4 mg/dL (0.5-1.1); ESTIMATED GFR (MDRD EQUATION) > 60; POTASSIUM 4.2 mMol/L (3.7-5.1); SODIUM 138 mMol/L (135-145); TOTAL BILIRUBIN 0.3 mg/dL (0.0-1.5); TOTAL PROTEIN 6.5 g/dL (6.0-8.4)
[2016-12-12 05:44] LABS: BASOPHIL % 0.3 %; EOSINOPHIL # 0.1 K/uL (0.0-0.5); EOSINOPHIL % 0.4 %; HEMATOCRIT 32.3 % (33.0-46.0); HEMOGLOBIN 10.6 g/dL (10.0-15.0); IMMATURE GRANULOCYTE # 0.3 K/uL (0.0-0.3); IMMATURE GRANULOCYTE % 2.3 %; LYMPHOCYTE # 2.4 K/uL (0.8-4.0); LYMPHOCYTE % 20.1 %; MCH 33.1 pg (27.0-34.0); MCHC 32.8 gm/dL (32.0-36.5); MCV 100.9 fl (83.0-98.0); MONOCYTE # 0.8 K/uL (0.0-1.0); MONOCYTE % 6.9 %; MPV 9.3 fl (9.4-12.4); NEUTROPHIL # (ANC) 8.3 K/uL (1.8-7.8); NRBC % 0 /100WBC (0-0.00); RDW-CV 16.5 % (11.9-14.6); WBC 11.9 K/uL (4.0-11.0)
[2016-12-12 05:48] LABS: PLATELET COUNT 366 K/uL (150-450)
--- NOTE | 2016-12-12 15:08 | NUR ---
Significant Event: A/OX3, pleasant and cooperative with cares, monotone voice but appropriate affect. Makes needs known. c/o pain to hip and low back which she takes nucynta for. Has accessed port to l) upper chest. Transfers with 2 assist SPT, is very weak. L) foot drop noted, has foot drop boot that she is to wear in bed. Orders for OT to kinesiotape l) shoulder. L) arm sling on when up. Has walter catheter intact with no complications noted. Follow up:
--- NOTE | 2016-12-13 04:28 | NUR ---
Significant Event: Patient is alert and oriented x 3. HR is tacky at 110 last evening. Took 1 Nucyenta at 1840 then her scheduled Tylenol at bed time for her hip and low back. Has slept very well t/o the night. Prado patent with 1050 mls out. Port to upper left chest is accessed flushes well. Left side is flaccid. Up 2 assist. Wears a foot drop boot in bed and a hand splint on and off. Has not been out of bed tonight. Nursing attemps to reposition her t/o the night but she refuses most of the time due to her hip and back pain. Follow up:
--- NOTE | 2016-12-13 16:14 | NUR ---
Significant Event: Patient alert and oriented. 2 assist. Very heavy pivot transfer. Left side is flaccid. Does not move left foot or leg very well with transfers. Had to lift it for her. Wears AFO to left shoe. Taking Nuecenta for pain. Port a cath to left chest. Dressing and needle changed. Prado catheter intact. Wears leg bag during the day.
--- NOTE | 2016-12-14 03:17 | NUR ---
Significant Event: Patient is alert and oriented x 3, VSS. Is up 2 assist transfer scoot or pivot. Left side is flaccid so we need to assist with left foot placement. Is having pain to her hip and low back due to her fall. Takes meds whole. comes often and is attentive to her needs. Has a walter cath due to retention. Has had 1075 mls out t/o the night. Is placed on a leg bag during the day. Has a foot drop boot while in bed, an arm sling when up and an AFO to her left foot. Takes Nucynta for pain and has scheduled Tylenol 1300 mls BID. Follow up:
--- NOTE | 2016-12-14 11:25 | NUR ---
D: TR progress note for 12/14/16. I: Pt was to be seen for 2 units 1015 to begin initial evaluation. R: Pt not seen due to conflict. P: Will attempt to see this pm.
--- NOTE | 2016-12-14 11:39 | NUR ---
Significant Event: Alert/oriented, can be forgetful at times. VSS. Left chest port intact. VSS. 2a pivot to w/c, commode. Left side flaccid, wears AFO to left foot and sling to LUE. Does need assistance with positioning left leg before transfer. Prado intact, draining adequately. Takes scheduled tylenol and prn nucynta for pain control. here this afternoon to work with therapy and transfers; wants to take patient on outing. According to [facility] PT, not safe at this time to go on outing with -see therpay notes for details. Follow up:
--- NOTE | 2016-12-14 12:04 | NUR ---
D: Therapeutic Recreation Initial Assessment on 12/14/16. I: Patient seen for 2 units to begin initial evaluation. Pt's R: Patient[place] ramp Living with: Spouses name: # of children: Driving: no, spouse does (SUV) Ambulating: SBA (WC) Equipment: norberto walker Hand Dominance: R Wildlife Officer strength: L) side flaccid Eye sight: glasses Reading ability: reports no problems Hearing: no problem Speech: clear Cognition: impaired Comprehension: fair Following directions: Initiating: yes Eye contact: Affect: bright COMMUNITY INVOLVEMENT: 2-3x week AA Party, Treasure Data, Platial, community events LEISURE INTERESTS: watch TV, book work Patient is referred by medical staff for treatment and evaluation in the following areas: Community Skills, Functional Leisure Skills, Participation, Leisure Education/Behaviors, Family Education, Cognitive, Emotional. Information obtained: Interview, Chart Review, Family resource, Observation, other. BARRIERS TO LEISURE: Physical, Lifestyle (tobacco use, hx of depression) Transportation, Leisure Skills. Patient determined to be: APPROPRIATE FOR THERAPEUTIC RECREATION ASSESSMENT. TREATMENT WILL INCLUDE: Community living skills training Functional leisure development Physical skills development Cognitive skills development Social skills development Leisure education Emotional/behavioral adaptation Family education Community resources/packet TARGET EQUIPMENT/INFORMATION: Parking Permit HAS PLACE Community Resources Energy conservation in community setting Van/Service/Taxi Scrip Adapted Leisure Equipment Stress management/Relaxation techniques Functional car transfers Leisure Education Behaviors: Attitude, Awareness, Participation. Patient functional skills level and potential: Poor, demonstrates poor mobility with concerns for safety and coping. Patient oriented ot TR services on Rehab unit. Pt/family provided input into goals setting and plan of care. Pt's goal is to walk be it independent or with devices and drive again. P: Target date set with personal goals established. Will continue with POC focusing on pt/family training and education. For additional information please see Nursing Data Base, PT, OT, CM, ST, initial assessments to [facility] and Interdisciplinary Assessments.
--- NOTE | 2016-12-15 03:10 | NUR ---
Significant Event: PATIENT IS ALERT/ORIENTED X 3. MOVES WITH 2A SCOOT TRANSFER. LEFT LEG AND ARM WEAK. BLOOD PRESSURE SLIGHTLY LOW TONIGHT. PORT FLUSHES WELL, GOOD BLOOD RETURN. WEST PRESENT. LEFT ARM BLACK SPLINT APPLIED AT HS WELL LEFT FOOT DROP BOOT. HAS HAD NO COMPLAINTS OF PAIN THIS SHIFT, NO PRNS GIVEN. Follow up: NO OUTINGS WITH ARE APPROVED AT THIS TIME PER THERAPY. STILL OKAY FOR HIM TO TAKE ON WALKS AND GO OUTSIDE, JUST CAN'T LEAVE THE GROUNDS ESPECIALLY IN THE CAR.
--- NOTE | 2016-12-15 17:40 | NUR ---
Significant Event:PATIENT ALERT AND ORIENTED THIS SHIFT. IS FORGETFUL ALSO. VSS. WEARS HAND SPLINT TO LEFT HAND AND SLING WHEN UP. WEARS FOOT DROP BOOT WHEN IN BED. BP ELEVATED THIS AM. PORT TO LEFT CHEST FLUSHES WELL. HAS REPORTED MINIMAL PAIN. WEST PATENT AND DRAINS DARK YELLOW URINE. LEFT SIDE FLACCID. ONLY GIVEN SCHEDULED TYLENOL FOR PAIN SO FAR TODAY. AT BEDSIDE THIS AFTERNOON. WENT OUT IN THE HALLS OF THE HOSPITAL WITH IN HER WHEELCHAIR BUT DID NOT GO OFF THE PREMISES. NO OTHER COMPLAINTS. Follow up:
--- NOTE | 2016-12-15 21:59 | NUR ---
Significant Event: PATIENT IS ALERT/ORIENTED X 3. MOVES 2 ASSIST PIVOT/SCOOT. PORT FLUSHED, NO BLOOD RETURN. WEST DRAINING YELLOW URINE. SPLINT PUT ON LEFT HAND AND FOOT DROP BOOT ON LEFT FOOT IN BED. VSS, PATIENT DID GO OUTSIDE WITH EARLIER AND HAS BEEN IN BED SINCE. ON SCHEDULED TYLENOL FOR PAIN. EDEMA PRESENT TO LEFT SIDE. PLEASANT AND COOPERATIVE WITH CARES. Follow up:
--- NOTE | 2016-12-16 05:31 | NUR ---
Took over pt cares at 2230. She did have a large BM last evening. Slept well through the night without needs.
--- NOTE | 2016-12-16 09:39 | NUR ---
A-SCREENED D/T LOS; NEW ADMIT TO [facility] S/P FALL. 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 HT: 66 IN. WT: 85.6 KG (WHEELCHAIR WT). BMI: 30.4. NO REPORT OF UNPLANNED WT LOSS WARDROBE COORDINATOR AND APPETITE IS GOOD. 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 PO INTAKE 75-100% EST NUTR NEEDS: 5655-4523 KCALS (20-25 KCALS/KG) 86-103 GM PROTEIN (1.0-1.2 GM/KG) 1 ML FLUID PER KCAL D-NOT AT NUTRITION RISK AT THIS TIME; NO NUTRITION DX IDENTIFIED I-CONTINUE W/CURRENT DIET RX M/E-WILL ASSIST NEEDED
--- NOTE | 2016-12-16 16:50 | NUR ---
Significant Event:PATIENT ALERT AND ORIENTED THIS SHIFT. VSS. TRANSFERS WITH 2 ASSIST, GAIT BELT AND SCOOT/PIVOT TRANSFER. PORT IN LEFT CHEST FLUSHED THIS AM. PATIENT COMPLAINED OF IT STUNG A LITTLE WHEN FLUSHED. WILL NEED TO RESTART POSSIBLY. WILL HAVE ANOTHER RN REASSESS. WAS JUST INSERTED 3 DAYS AGO AND DID NOT HAVE ANY COMPLICATIONS YESTERDAY. WEST DRAINS DARK YELLOW URINE. HAS HAD MINIMAL PAIN TODAY. NO OTHER COMPLAINTS. Follow up:
--- NOTE | 2016-12-17 04:29 | NUR ---
Significant Event: transferred to bed from wheelchair with 2 assist, stand pivot. foot drop boot to left lower extremity. hand brace to left hand/arm. denies pain, takes scheduled tylenol at hs. port to left chest, pearson needle removed due to being out with dressing change. walter patent with cloudy yellow urine. Follow up: to have bag bath and dress with OT this am.
--- NOTE | 2016-12-17 10:09 | NUR ---
[facility] Case Management Prefunctioning and Psycho-Social Initial Assessment for 12/11/16, Case Conference Note for 12/11/16 D: Initial Mining SpeculatorPediatric Orthodontist and Case Conference Note. I: Input from: patient, family, Dr. Washburn, Shannon PATELW R: Reason for admission: left hip pain status post fall. No fracture. Hx of ovarian cancer with mets to brain. Admission Date to [facility]: 12/11/16 Admission Date to Hospital: 12/06/16 Prior level of functioning: patient was needing assistance of for adl's and transfers. Prior living situation: one story house with . Financial resources/expectations: patient has BC/BS and Medicare. Resources used: walk-in shower, shower chair, commode, wheelchair. Resources available: HHC, outpatient therapy, SNF, LONG TERM, [facility], DME Family support available: , sons. Understands nature of health condition: Yes Recognizes impact of health condition on lifestyle: Yes Vocational/Educational: Retired Behavior/Emotional needs: Cues for safety. Monitor for signs and symptoms of depression and anxiety. Has a hx of depression and anxiety and is on medications. Legal concerns: none. Discharge goal: SNF Assessment: Berenice is a 71 year old woman form [place], [place] admitted with left hip pain. Her is supportive of her needs. He did visit with about patient going to SNF on d/c instead of back home because he said that caring for patient was getting very difficult in their home. Will follow and assist as needed. Team conference was held and plan is approx. 7-10 days. Orientation to the program and CM services completed with Berenice/Matthew. Initial plan of care and estimated length of stay discussed, disclosure statement reviewed including patient assessment rights. P: Target date and individual goals established. Please see POC for details. For additional information please see Nursing Data Base, PT, OT, TR, ST Initial assessments to [facility].
--- NOTE | 2016-12-17 14:41 | NUR ---
Significant Event: Pt up in room with 2 assist, pivot to w/c and toilet. Left arm brace removed this am, foot drop boot on at night, AFO on during day. Nucynta at 1100. Prado patent, cloudy yellow urine. Port to rt chest, not accessed. BM 12/16. Pt pleasant and cooperative with cares. Follow up: activity, safety
--- NOTE | 2016-12-18 04:02 | NUR ---
Significant Event: Patient is alert and oriented x 3. HR was tacky at 114 last night. Up 1-2 assist pivot transfers. Left side is flaccid and she is unable to move her left foot with transfers. Wears an AFO to her left shoe and a sling to her left arm when up and a foot drop boot and a left hand splint while in bed. Has Tylenol or Nucynta for pain to her left hip and low back. Prado cath is patent with 1000 mls out. May need to see a Urologist has failed the voiding trial x 2. Port to left chest is no longer accessed, had dislodged. is present on an off t/o the day and attentive to her needs. Follow up:
--- NOTE | 2016-12-18 16:13 | NUR ---
D: TR progress note for 12/18/16. I: Pt seen for 2 units at 1332 for community integration skills building, functional transfers and safety awareness. R: Pt seen for functional skills building working on endurance, transfers and community skills to increase independence in all areas. Pt taken around [facility] campus indoors to simulate community environment. Pt SBA for pathfinding following signs and looking for land aviles to locate and navigate way from outdoors, Chapel and to room. Pt transferred WC > bed doing scoot type transfers min > mod assist with LLE management and cues. P: Will continue to see to address goals and plan of care.
--- NOTE | 2016-12-18 16:42 | NUR ---
Significant Event:PATIENT ALERT AND ORIENTED THIS SHIFT. VSS. TRANSFERS WITH 2 ASSIST, GAIT BELT PIVOT. IS DOING MUCH BETTER AND MUCH LESS PAIN TODAY. TOLERATED THERAPY WITHOUT DIFFICULTY. AT BEDSIDE MOST OF THE DAY. NO OTHER COMPLAINTS. Follow up:
--- NOTE | 2016-12-19 05:12 | NUR ---
Alert and oriented. Talkative and cooperative with cares. Flaccid on left side. Is 2 assist gaitbelt pivot transfer. is attentive to cares while here. Denied need for Nucynta this shift. Prado patent with clear yellow urine. Last BM 12/17.
--- NOTE | 2016-12-19 17:17 | NUR ---
Significant Event:PATIENT ALERT AND ORIENTED THIS SHIFT. VSS. TRANSFERS WITH 2 ASSIST, GAIT BELT PIVOT TRANSFER. WEST PATENT DRAINING DARK YELLOW URINE. TOLERATING THERAPIES WELL. BAND AID TO RIGHT SECOND TOE HEALED AND JUST DRY TO TOP OF TOE. WILL CONTINUE TO MONITOR. LEFT SIDE REMAINS FLACCID. NO OTHER COMPLAINTS. Follow up:
--- NOTE | 2016-12-20 04:22 | NUR ---
Significant Event: tylenol es 1000 mg given at hs for c/o pain to rt hip. relief with pain meds. peritoneal dialysis started at hs per . runs without problems. left heel reddened but intact. heels floated off bed. was up to bathroom with 2 assist and wheelchair. transfers fair. had small bm. dressing to right hip x2 d/i. rt neck dressing to old iv site changed due to being loose. midline IV catheter to rt upper arm. use rt lower arm for blood pressures. Lopressor held at 2100 due to blood pressure 107/49. acccucheck at hs was 236, recieved 2 units of novalog per ss. Follow up:
--- NOTE | 2016-12-20 04:34 | NUR ---
Significant Event: rates pain 3, scheduled tylenol given. took patient outside for walk. left arm flaccid. hand in brace at hs. foot drop boot to left lower extremity. transfers to bed from wheelchair with 2 assist, transfers fair. walter patent with cloudy yellow urine. Follow up:
--- NOTE | 2016-12-20 12:51 | NUR ---
Significant Event: PATIENT ALERT AND ORIENTED X3. UP 2 ASIST SCOOT TRANSFER TO RIGHT SIDE, LEFT SIDE FLACCID. BRACE TO LEFT HAND AT NIGHT, SLING TO LEFT ARM DURING THE DAY. VITALS STABLE ON ROOM AIR. WEST PATENT. BP IN RIGHT ARM. POSSIBLY DC TO [facility] SOON. PILLS WHOLE WITH WATER. RECEIVES SCHEDULED TYLENOL. Follow up:
--- NOTE | 2016-12-20 14:01 | NUR ---
D: Application Developer Manager Team Conference Follow up for 12/18/16 I: Input from patient/family R: Met with: patient, , Shannon Faye LABEL FUSER TENDER Discussed rehab plan, patient progress, discharge plan and estimated length of stay of d/c planned soon to a SNF. Patient/Family Preference: Patient and are in agreement. Anticipated discharge disposition: SNF in the community. Education completed: Education was completed with patient and regarding length of stay, progress in therapy and d/c plan. Assessment/Recommendation: Team recommends d/c to SNF soon. P: Case Coordination: Berenice was admitted with pain to left hip following a fall. Does not have a fracture. voiced that he cannot care for patient in the home anymore. Working on placement for patient into a nursing home facility in [facility]. Will follow and assist as needed.
--- NOTE | 2016-12-20 23:57 | NUR ---
Alert and oriented. her entire evening and is attentive to pt cares. Is two person scoot transfer. Left arm sling when up with AFO to Left shoe. Takes scheduled Tylenol for pain. Meds taken all at once with water. Cares handed over to Zarina Anderson RN at 22:30
--- NOTE | 2016-12-21 04:36 | NUR ---
Significant Event:Assumed cares from Lizett Walton RN @ 0380. Patient in bed sleeping. Prado intact, output of 1375 this shift. Calllight within reach. BEd alarm on. Follow up:
--- NOTE | 2016-12-21 08:47 | NUR ---
A - NUTRITION FOLLOW-UP. NO NEW LABS/MEDS. WEIGHT STABLE SINCE ADMIT. DIET: REGULAR. INTAKE 100% ALL MEALS. EST NEEDS: 7003-2059 KCAL, 86-103 GRAMS PROTEIN, FLUID NEEDS: 1ML/KCAL D - NO NUTRITION DIAGNOSIS AT THIS TIME. I - CONTINUE WITH CURRENT DIET RX. M/E - GOAL: PT WILL CONTINUE TO CONSUME >75% OF MEALS IN 5-7 DAYS.
--- NOTE | 2016-12-21 16:14 | NUR ---
Significant Event: Patient alert and oriented x 3. Up with 2A scoot transfer. Nucynta for pain to bilat knees. Left side flaccid. Sling to arm when up. Prado intact/patent. Meds whole with water. Continent of bowel and bladder. Cooperative with cares. Follow up:
--- NOTE | 2016-12-22 02:24 | NUR ---
Significant Event: 2 assist scoot from wheelchair. Has a walter catheter. A&O x3. Denies pain. Scheduled Tylenol last at 2121. Takes meds whole. L) side is flaccid. Follow up:
--- NOTE | 2016-12-22 13:56 | NUR ---
Significant Event:Pt alert and orientated x 3. Pt transfers with 2 assist, scoot method/gaitbelt, left side remains flaccid. L arm sling on when up. Walter patent with yellow urine. Scheduled Tylenol given, has not asked for any other pain meds as of this time. No changes in assessment, note charting. Pt expresses needs well, very supportive. Pt repositioned every 2 hours. Pt has been plesant and cooperative with plan of care. Follow up:walter cath., pain control.
--- NOTE | 2016-12-23 03:19 | NUR ---
Significant Event: here last evening for short time, did go outside in [email or web address] area. Has arm sling to left arm. Prado with cloudy yellow urine. Flaccid left arm/leg. 2 assist scoot transfer. Has unaccessed left port. Seizure precautions. Takes meds whole, has scheduled tylenol for shoulder/bilat knee discomfort, effective with no need for further prn meds. Turned q 3 hrs per her request. Follow up: Prado cares. Two assist for transfers. Pending group home placement for discharge, unsure when that will be.
--- NOTE | 2016-12-23 10:30 | NUR ---
Significant Event: Matthew came his usual time @ 0630, brought pt her coffee and a Mckenna to wear when she gets up, and then left for mosque with plans to return latter. Pt rested in bed till mid morning, pt transfered with 2 assist/gaitbelt and scoot method to wheel chair/toilet. L arm sling on when up, left side weak with minimal movement, note charting, assessment unchanged. Pt expresses needs well, repositioned every 2 hours. Cooperative with plan of care. Follow up:pain control, walter cath protocol.
--- NOTE | 2016-12-23 15:28 | NUR ---
Pt had been out with for walk, noted very strong cig. breath noted when transfered to the BR. Also noted after pt was in bed, scant amt of blood on her elbow sling, and noted a pea size topical skin opening on left elbow, pt reported she had had a scab in that area, and may have been that. Dressing put over site for protection of skin.
--- NOTE | 2016-12-24 04:03 | NUR ---
Significant Event:went to [employer] with for dinner last evening. C/o catheter burning and irritation, cleansed and left brief off for the night--minimal redness to area, did check walter and advance catheter into bladder, noted statlock wasn't securing walter tubing--after doing these interventions pt reported relief. Walter drained 700 ml. Tachy in mid 's. Alleyvn drsg to left elbow as small pea sized scab was sheared from area on Saturday. Wears sling to left flaccid arm. Has been turned q 2-3 hrs. Bilat knee discomfort rated at 2, no addtl prn pain meds needed. Transfers with 2 assist scoot. Walter cloudy yellow. Takes meds whole with water all at once usually. Follow up:Monitor for redness/rash to kym area due to c/o irritation/burning. Monitor for seizures. Pending group home discharge, unsure of where/when that will be.
--- NOTE | 2016-12-24 14:13 | NUR ---
Significant Event: Pt up to w/c with 1 assist, scoot. Alok. well. LUE, LLE flaccid. Walter remains in with yellow urine output. No c/o pain or discomfort with walter. Cares done with bath this am. Sling on LUE when transferring. Alevyn dressing to left elbow, remains dry and intact. Left ankle splint on when up. Lower extremity edema present. Left wrist plint on during night and removed in am. Pt uses left foot drop boot at night also. Good oral intake. Follow up: Plan for transfer to [facility] tomorrow; Dr macias filled out paperwork this afternoon. Pain management, activity, walter cath.
--- NOTE | 2016-12-25 05:28 | NUR ---
Significant Event: Patient is alert and oriented, VSS. Up 1-2 assist pivot transfer. Left side flaccid. Wears a splint to her left hand and a foot drop boot to her left foot at HS. Has an AFO to her left foot during the day. Prado patent with 1850 mls out. Patient teary eyed about discharge to [facility]. Follow up: Discharge to [facility] today.
[2016-12-25 06:54] LABS: BASOPHIL % 0.3 %; EOSINOPHIL % 0.1 %; HEMOGLOBIN 10.7 g/dL (10.0-15.0); IMMATURE GRANULOCYTE # 0.2 K/uL (0.0-0.3); IMMATURE GRANULOCYTE % 1.3 %; LYMPHOCYTE # 2.1 K/uL (0.8-4.0); LYMPHOCYTE % 18.8 %; MCH 32.8 pg (27.0-34.0); MCHC 31.5 gm/dL (32.0-36.5); MCV 104.3 fl (83.0-98.0); MONOCYTE # 0.6 K/uL (0.0-1.0); MONOCYTE % 5.2 %; MPV 8.9 fl (9.4-12.4); NEUTROPHIL # (ANC) 8.4 K/uL (1.8-7.8); NEUTROPHIL % 74.3 %; NRBC % 0 /100WBC (0-0.00); PLATELET COUNT 358 K/uL (150-450); RBC 3.26 M/uL (3.50-5.50); RDW-CV 15.7 % (11.9-14.6); WBC 11.2 K/uL (4.0-11.0)
[2016-12-25 07:07] LABS: ALBUMIN 3.1 gm/dL (3.5-5.0); ALK PHOS 112 IU/L (33-138); ALT 30 IU/L (12-78); ANION GAP 13.4 (10.0-19.0); AST 17 IU/L (10-40); BLOOD UREA NITROGEN 12 mg/dL (6-24); CHLORIDE 106 mMol/L (96-110); CO2 25 mMol/L (22-32); CREATININE 0.4 mg/dL (0.5-1.1); ESTIMATED GFR (MDRD EQUATION) > 60; POTASSIUM 4.4 mMol/L (3.7-5.1); SODIUM 140 mMol/L (135-145); TOTAL PROTEIN 6.6 g/dL (6.0-8.4)
[2016-12-25 07:08] LABS: TOTAL BILIRUBIN 0.2 mg/dL (0.0-1.5)
--- NOTE | 2016-12-25 09:04 | NUR ---
Significant Event:Pt alert and orientated, expresses needs well. Matthew attentive and helpful with pt, visit throughout the day. Pt up with 1-2 assist scoot method to wheel chair/bathroom, gait belt on. No complaints of discomfort this am, reports when needs something for pain. Takes scheduled meds whole with water, likes to take them all @ once. Some times refuses Miralax, did take this am has has not had BM since 12/22/16. Left side flaccid with some slt movement noted @ times, uses sling for left arm. Pea size scab came off on left arm 12/23/16, site covered by Alevyn dressing, dry and intact. Wears left wrist splint @ noc, and foot drop boot. Has splint for shoe during the day. Pt has some edema lower extremity also. Pt feeds self, regular diet. Prado patent with cloudy yellow urine. Seizure precautions followed, none have occured on this unit. Pt wears a bandaid to keep 2nd toe from rubing on her shoe. She has scattered bruises, arms, etc. Port on chest is not accessed. Pt ready to go to [facility] when ride arrives. Pt has been pleasant and cooperative with cares. Follow up:Transfer to [facility].
--- NOTE | 2016-12-25 13:30 | NUR ---
Pt ride time changed and [place] did not arrive for her till 1315. Possessions packed, went with. Pt said good bye to all, as she knew most of staff well and was a little teary eyed on departure. continues to be good support for . Pt discharged to [facility] per [place], packet sent with contining discharge information.
--- NOTE | 2016-12-25 14:29 | NUR ---
D: TR progress note for 12/25/16. I: Pt seen for 1 unit for leisure education and coping strategies. R: Pt seen functional skills building working on use of leisure involvement to promote recovery and for coping to increase awareness of options available. Education and review done on use of leisure involvement at SNF to promote recovery, for coping strategies and to assist with adjustment to new living environment along with rapport building to peers/staff. P: Will discharge to SNF today, 12/25/16.
--- NOTE | 2016-12-31 13:05 | NUR ---
D: Body Corporate Manager Discharge Note for 12/25/16 I: Input from Patient/Family R: Patient to discharge On: 12/25/16 With: [facility] Disposition: [facility] Resource Discussed: discussed options. does not feel he can care for patient. Therapy Recommendation: see therapy notes. Equipment Recommendations: see therapy notes. Financial Resources Used: patient has BC/BS and Medicare as well as keno terminal operator care insurance. Other referrals: referral to [facility]. Patient/Family education completed: prior to d/c. Patient/Family preference: in agreement. Patient was tearful. Plan of Care and Goal summary: met all goals except goal to return to home. P: Complete follow up within one week: call to see how patient is doing next week.
== END 2016-12-25 13:30 | DRG 948 ==
LOC: GIRP 14:15
PROVIDERS: ADMIT Physical Medicine & Rehabilitation
DX: R53.1 Weakness (principal); C79.31 Secondary malignant neoplasm of brain; C56.2 Malignant neoplasm of left ovary; R26.9 Unspecified abnormalities of gait and mobility; C57.02 Malignant neoplasm of left fallopian tube; F32.9 Major depressive disorder, single episode, unspecified; E03.9 Hypothyroidism, unspecified; M19.90 Unspecified osteoarthritis, unspecified site; Z87.891 Personal history of nicotine dependence; Z91.81 History of falling

== ENCOUNTER → 2017-01-30 | Outpatient (CLI) | payer BC, MEDICARE ==
[2017-01-30 12:00] LABS: BASOPHIL # 0.1 K/uL (0.0-0.2); BASOPHIL % 0.5 %; EOSINOPHIL # 0.1 K/uL (0.0-0.5); EOSINOPHIL % 0.6 %; HEMATOCRIT 34.5 % (33.0-46.0); HEMOGLOBIN 11.3 g/dL (10.0-15.0); IMMATURE GRANULOCYTE # 0.4 K/uL (0.0-0.3); LYMPHOCYTE % 20.7 %; MCH 32.7 pg (27.0-34.0); MCHC 32.8 gm/dL (32.0-36.5); MCV 99.7 fl (83.0-98.0); MONOCYTE # 0.9 K/uL (0.0-1.0); MONOCYTE % 6.3 %; NEUTROPHIL # (ANC) 9.9 K/uL (1.8-7.8); NEUTROPHIL % 68.9 %; NRBC % 0 /100WBC (0-0.00); PLATELET COUNT 423 K/uL (150-450); RBC 3.46 M/uL (3.50-5.50); RDW-CV 14.3 % (11.9-14.6); WBC 14.4 K/uL (4.0-11.0)
== END | disposition disaster alternative care site (69) ==
LOC: GLAB 10:40
PROVIDERS: Orthopaedic Surgery
DX: Z47.1 Aftercare following joint replacement surgery (principal); Z96.651 Presence of right artificial knee joint

== ENCOUNTER → 2017-02-13 | Outpatient (CLI) | payer BC, MEDICARE | LOC: GRAD 02-05 11:00 | DX: T84.84XA Pain due to internal orthopedic prosthetic devices, implants and grafts, initial encounter (principal); Y83.9 Surgical procedure, unspecified as the cause of abnormal reaction of the patient, or of later complication, without mention of misadventure at the time of the procedure; Y92.9 Unspecified place or not applicable; Z96.653 Presence of artificial knee joint, bilateral | CPT/HCPCS: A9503 ==